=== PATIENT | female | born 1985 ===

== ENCOUNTER 2020-12-15 05:26 | Inpatient (IN) | payer OTHER ==
[2020-12-15] MEDS ORDERED: TERBUTALINE 1 MG/1 ML INJ SUB-Q PRN (06:09)
[2020-12-15] MEDS ORDERED: MINERAL OIL 30 ML ORAL LIQD PO PRN (06:09)
[2020-12-15] MEDS ORDERED: fentaNYL 100 MCG/2 ML INJ IV PRN (06:09)
[2020-12-15] MEDS ORDERED: BUTORPHANOL 2 MG/1 ML INJ IV PRN (06:09)
[2020-12-15] MEDS ORDERED: ePHEDrine SULFATE 50 MG/1 ML INJ IV PRN (06:09)
[2020-12-15] MEDS ORDERED: ONDANSETRON 4 MG/2 ML INJ IV PRN (06:09)
[2020-12-15] MEDS ORDERED: LIDOCAINE (2%) 20 MG/1 ML VIAL 20 ML MDV INFILTRATI ONE (06:09)
[2020-12-15] MEDS ORDERED: LACTATED RINGERS 1,000 ML IV SCH (06:15)
[2020-12-15 07:00] LABS: Hematocrit 36.7 % (30.3-42.9); Hemoglobin 12.5 gm/dl (10.1-14.3); Mean Corpuscular HGB Conc 34 % (30-34); Mean Corpuscular Volume 88 fl (79-97); Platelet Count 279 K/mm3 (140-440); Red Blood Count 4.16 M/mm3 (3.65-5.03); Red Cell Distribution Width 13.6 % (13.2-15.2)
[2020-12-15] MEDS ORDERED: OXYTOCIN DRIP 30 UNITS/500 ML BAG IV SCH (07:00)
--- NOTE | 2020-12-15 10:04 | History and Physical Report ---
History of Present Illness Date of examination: 12/15/20 Date of admission: 12/15/20 08:28 Chief complaint: Intense labor pains. RN reports SROM at 0928. History of present illness: Early entry to care at 11 6/7 weeks to [facility]. course complicated by dysuria (PO Macrobid 11/01/2020). Past History Past Medical History: no pertinent history Past Surgical History: no surgical history Family/Genetic History: none Social history: no significant social history - Obstetrical History Expected Date of Delivery: 12/15/20 Actual Gestation: 40 Week(s) 0 Day(s) : 2 Para: 1 Hx # Term Pregnancies: 1 Number of Pregnancies: 0 Spontaneous Abortions: 0 Induced : 0 Number of Living Children: 1 #1 Infant Gender: Male year: Birthweight: 3.175 kg Method of Delivery: Vaginal Gestational age at delivery: 40 Complications: none Medications and Allergies Allergies Allergy/AdvReac Type Severity Reaction Status Date / Time No Known Allergies Allergy Verified 07/26/15 10:39 Home Medications Medication Instructions Recorded Confirmed Last Taken Type Vitamin 07/26/15 07/26/15 06/26/15 History Active Meds: Active Medications Butorphanol Tartrate (Butorphanol 2 Mg/1 Ml Inj) 2 mg IV Q2H PRN PRN Reason: Pain , Severe (7-10) Last Admin: 12/15/20 07:11 Dose: 2 mg Documented by: Ephedrine Sulfate (Ephedrine Sulfate 50 Mg/1 Ml Inj) 10 mg IV Q2M PRN PRN Reason: Hypotension Fentanyl (Fentanyl 100 Mcg/2 Ml Inj) 100 mcg IV Q2H PRN PRN Reason: Pain,Severe (7-10) LABOR PAIN Lactated Ringer's (Lactated Ringers) 1,000 mls @ 125 mls/hr IV DIRECT SCOTT Last Admin: 12/15/20 07:05 Dose: 125 mls/hr Documented by: Oxytocin/Sodium Chloride (Pitocin/Ns 30 Unit/500ml) 30 units in 500 mls @ 40 mls/hr IV TITR SCOTT; Protocol Mineral Oil (Mineral Oil 30 Ml Oral Liqd) 30 ml PO QHS PRN PRN Reason: Constipation Ondansetron HCl (Ondansetron 4 Mg/2 Ml Inj) 4 mg IV Q8H PRN PRN Reason: Nausea And Vomiting Terbutaline Sulfate (Terbutaline 1 Mg/1 Ml Inj) 0.25 mg SUB-Q ONCE PRN PRN Reason: Hyperstimulation/Hypertonicity Review of Systems All systems: negative - Vital Signs Vital signs: Vital Signs Pulse Pulse Ox 75 98 12/15/20 05:31 12/15/20 05:31 Temp Pulse Resp BP Pulse Ox 98.7 F 68 18 122/82 98 12/15/20 05:33 12/15/20 06:32 12/15/20 05:33 12/15/20 06:32 12/15/20 06:11 - Physical Exam Breasts: Positive: normal Cardiovascular: Regular rate Lungs: Positive: Clear to auscultation, Normal air movement Abdomen: Positive: normal appearance, soft Genitourinary (Female): Positive: normal external genitalia, normal perenium Vagina: Positive: normal moisture Uterus: Positive: enlarged Anus/Rectum: Positive: normal perianal skin Extremities: Positive: normal - Obstetrical FHR: category 1 Uterine Contraction Monitor Mode: External Cervical Dilatation: 7 (Leaking a small amount of clear fluid on exam. AROM of hindbag with small amount of clear fluid at 0956.) Cervical Effacement Percentage: 80 station: 0 Uterine Contraction Frequency (min): 3-5 Uterine Contraction Duration: 60-90 Uterine Contraction Pattern: Irregular Uterine Tone Measurement Phase: Resting Uterine Contraction Intensity: Moderate Results Result Diagrams: 12/15/20 06:25 Abnormal lab results 12/15/20 Range/Units 06:25 WBC 17.0 H (4.5-11.0) K/mm3 All other labs normal. Assessment and Plan A: IUP at 40 weeks Category I tracing Active Labor GBS Negative P: Admit to L&D per routine orders AROM of hindbag Start Pitocin Augmentation Anticipate
--- NOTE | 2020-12-15 10:44 | Procedure Note ---
OB Delivery Note - Delivery Date of Delivery: 12/15/20 (1019) Surgeon: TATIANA HAM Estimated blood loss: 300cc - Vaginal Delivery presentation: vertex Delivery position: OA Intrapartum events: none Delivery induction: none Delivery augmentation: rupture of membranes, pitocin Delivery monitor: external FHT, external uterine Route of delivery: Delivery placenta: spontaneous Delivery cord: 3 umbilical vessels Episiotomy: none Delivery laceration: none Anesthesia: none Delivery comments: of a live 7'7 female with Apgars of 8 and 9 over an intact perineum under IV pain control at 1019 on 12/15/2020. Infant directly to maternal abd/chest, skin to skin contact. Delayed cord clamping; cord double clamped and cut by SNM. Spontaneous delivery of placenta complete and intact with [place] side presenting at 1021. Fundus is firm and midline, located 4 below the U. Lochia is scant. Cord blood collected. Placenta to be discarded. - Infant A at 1 minute: 8 at 5 minutes: 9 Infant Gender: Female (7'7)
[2020-12-15] MEDS ORDERED: diphenhydrAMINE 25 MG CAP PO PRN (11:00)
[2020-12-15] MEDS ORDERED: WITCH HAZEL/ GLYCERIN PAD TP PRN (11:00)
[2020-12-15] MEDS ORDERED: oxyCODONE /ACETAMINOPHEN 5-325MG TAB PO PRN (11:00)
[2020-12-15] MEDS ORDERED: LANOLIN/ZINC/DIMETHICONE (LANSINOH) 7 GM TP PRN (11:00)
[2020-12-15] MEDS ORDERED: MAGNESIUM HYDROXIDE (MOM) ORAL LIQD UDC PO PRN (22:00)
[2020-12-15] MEDS: IBUPROFEN 600 MG TAB PO SCH (23:31)
[2020-12-15 23:34] LABS: Hematocrit 34.1 % (30.3-42.9); Hemoglobin 11.5 gm/dl (10.1-14.3)
[2020-12-16] MEDS: IBUPROFEN 600 MG TAB PO SCH ×6 (05:00→23:00)
--- NOTE | 2020-12-16 21:41 | Progress Note ---
Assessment and Plan PPD # 1 A: S/P p: Continue routine pp orders D/C home in am if stable Subjective - Subjective Date of service: 12/16/20 Principal diagnosis: s/p Patient reports: appetite normal, voiding normally, pain well controlled, ambulating normally [place]: doing well Objective - Vital Signs Latest vital signs: Vital Signs Temp Pulse Resp BP BP BP Pulse Ox 12/16/20 16:00 98.7 F 85 16 94/49 98 12/16/20 08:00 97.4 F L 68 16 105/63 97 12/16/20 07:38 97.9 F 80 18 108/72 98 12/16/20 05:00 16 12/16/20 00:31 18 12/15/20 23:31 18 12/15/20 23:29 98.0 F 74 18 102/65 95 Intake and Output 12/16/20 12/16/20 12/16/20 06:59 14:59 22:59 Intake Total 720 120 240 Output Total 450 Balance 270 120 240 Intake: Oral 360 120 240 Intake, Free Water 360 Output: Urine 450 Void 450 Other: Total, Intake Amount 360 120 240 Total, Output Amount 450 # Voids Void 1 1 1 - Exam Breasts: Present: normal Abdomen: Present: normal appearance, soft, normal bowel sounds Vulva: both: normal Uterus: Present: normal, firm, fundal height below umbilicus Extremities: Present: normal
--- NOTE | 2020-12-16 21:49 | Discharge Summary ---
Providers - Providers Date of Admission: 12/15/20 08:28 Date of discharge: 12/17/20 Attending physician: DAVID PILLAI MD Primary care physician: DAVID PILLAI MD Hospitalization Reason for admission: active labor Delivery: Episiotomy: none Laceration: none Other procedures: none complications: none Discharge diagnosis: IUP at term delivered baby: female Hospital course: Pt arrived to [facility] in labor. She had a w/o pp complications. See H&P, delivery summary, and pp notes. Condition at discharge: Stable Disposition: DC-01 TO HOME OR SELFCARE Plan - Discharge Medications Prescriptions: Ibuprofen [Motrin 600 MG tab] 600 mg PO Q6H #30 tablet - Provider Discharge Summary Activity: routine, no sex for 6 weeks, no heavy lifting 4 weeks, no strenuous exercise Diet: routine Instructions: routine Additional instructions: [] Smoking cessation referral if applicable(refer to patient education folder for contact #) [] Refer to [facility]'s [facility] Booklet Call your doctor immediately for: * Fever > 100.5 * Heavy vaginal bleeding ( >1 pad per hour) * Severe persistent headache * Shortness of breath * Reddened, hot, painful area to leg or breast * Drainage or odor from incision. * Keep incision clean and dry at all times and follow doctor's instructions regarding bathing/showering - Follow up plan Follow up: DAVID PILLAI MD [Primary Care Provider] - 6 Weeks
[2020-12-17] MEDS: IBUPROFEN 600 MG TAB PO SCH ×2 (05:18→15:44)
--- NOTE | 2020-12-17 11:07 | Progress Note ---
Subjective - Subjective Date of service: 12/17/20 Principal diagnosis: s/p Interval history: no complaints at bedside VSS PE benign meets d/c criteria Behzad Arcos MD Patient reports: appetite normal, voiding normally, pain well controlled, ambulating normally [place]: doing well Objective - Vital Signs Latest vital signs: Vital Signs Temp Pulse Resp BP BP Pulse Ox 12/17/20 08:22 98.0 F 69 18 103/61 99 12/17/20 00:45 97.9 F 69 18 110/72 97 12/16/20 16:00 98.7 F 85 16 94/49 98 Intake and Output 12/16/20 12/17/20 12/17/20 23:59 07:59 15:59 Intake Total 480 240 Balance 480 240 Intake: Oral 480 240 Other: Total, Intake Amount 240 240 # Voids Void 1 1 - Exam Breasts: Present: deferred, mass Cardiovascular: Present: Other Abdomen: Present: normal appearance, soft, normal bowel sounds Extremities: Present: normal
[2020-12-17 17:23] VITALS: BP 97/63
== END 2020-12-17 18:11 | disposition home or self-care (01) | DRG 807 ==
LOC: TRG 05:26 → APU 05:29 → TRG 06:09 → LD 08:28 → OB 12:11
PROVIDERS: ADMIT Obstetrics & Gynecology; ATTEND Obstetrics & Gynecology
PROC: 10E0XZZ Delivery of Products of Conception, External Approach (ICD-10-PCS; principal; 2020-12-15)
DX: O80 Encounter for full-term uncomplicated delivery (principal); Z37.0 Single live birth; Z3A.40 40 weeks gestation of pregnancy; Z20.822 Contact with and (suspected) exposure to COVID-19
CPT/HCPCS: 36415; 59025; 85014; 85018; 85027; 86592; 86850; 86900; 86901; 96360; 96361; 96365; G0378; J0595; J2590; J7120; U0003